=== PATIENT | female | born 1960 | race Hispanic/Latino ===

== ENCOUNTER 2016-11-23 09:37 | Outpatient (CLI) | payer MEDICAID ==
[2016-11-23 10:36] LABS: Blood Urea Nitrogen 12 mg/dL (7-17)
[2016-11-23] MEDS ORDERED: NACL ONE (11:57)
--- NOTE | 2016-11-23 14:08 | Cat Scan Report ---
CT of the abdomen and pelvis with and without IV contrast, and with oral contrast. Findings: Comparison is made to previous study performed on July 21, 2016. The liver is normal in size and configuration with no focal abnormalities. The spleen is mildly enlarged and unchanged, with no focal abnormalities. No definite evidence of varices is seen. A prominent gallstone is noted. The wall of the gallbladder does not appear thickened. The kidneys are normal in size and configuration with no evidence of mass or hydronephrosis. No pelvic masses or abnormal fluid collections are seen. No mesenteric inflammatory changes are seen. There is no free air. Impression: Cholelithiasis. Mild splenomegaly.
== END 2016-11-23 09:38 | disposition home or self-care (01) ==
LOC: CT 09:37
PROVIDERS: ATTEND Internal Medicine Gastroenterology
DX: K74.60 Unspecified cirrhosis of liver (principal); K80.20 Calculus of gallbladder without cholecystitis without obstruction; R16.1 Splenomegaly, not elsewhere classified; R77.2 Abnormality of alphafetoprotein; B19.20 Unspecified viral hepatitis C without hepatic coma
CPT/HCPCS: 36415; 74178; 82565; 84520; Q9967

== ENCOUNTER 2017-11-27 03:07 | Emergency (ER) | payer MEDICAID ==
[2017-11-27 05:15] LABS: Alanine Aminotransferase 79 units/L (7-56); Albumin 3.9 g/dL (3.9-5); BUN/Creatinine Ratio 17; Blood Urea Nitrogen 10 mg/dL (7-17); Calcium 9.1 mg/dL (8.4-10.2); Hemolysis Index 1; Lipase 28 units/L (13-60)
[2017-11-27 05:17] LABS: Basophils % (Auto) 0.3 % (0.0-1.8); Eosinophils % (Auto) 0.4 % (0.0-4.3); Hematocrit 45.2 % (30.3-42.9); Hemoglobin 14.9 gm/dl (10.1-14.3); Lymphocytes # (Auto) 0.6 K/mm3 (1.2-5.4); Lymphocytes % (Auto) 9.6 % (13.4-35.0); Mean Corpuscular HGB Conc 33 % (30-34); Mean Corpuscular Hemoglobin 30 pg (28-32); Mean Corpuscular Volume 90 fl (79-97); Monocytes # (Auto) 0.9 K/mm3 (0.0-0.8); Monocytes % (Auto) 13.9 % (0.0-7.3); Platelet Count 153 K/mm3 (140-440); Red Cell Distribution Width 16.2 % (13.2-15.2)
--- NOTE | 2017-11-27 10:13 | Emergency Department Report ---
ED Abdominal Pain HPI - General Chief Complaint: Abdominal Pain Stated Complaint: ABD/BACK PAIN Time Seen by Provider: 11/27/17 10:12 Source: patient Mode of arrival: Stretcher Limitations: No Limitations - History of Present Illness Initial Comments: PT IS A 57 YO FEMALE WHO PRESENTS WITH PELVIC PAIN , MALODOROUS DISCHARGE, MALODOROUS URINE, URINARY URGENCY, AND URINARY FREQUENCY. PT STATES SHE HAD SEX BUT THE CONDOM BROKE 2 DAYS AGO. PT STATED SHE HAS ONE SEX PARTNER AND HAS HAD PID IN THE PAST. PT STATES SHE SELF CATHERIZES AT HOME FOR ?URINARY RETENTION. PT STATES SHE RAN OUT OF CATHETERS AND HAS BEEN USING THE SAME ONE. PT STATE SHE HAS LOW BACK PAIN. PT DENIED HISTORY OF OVARIAN CYSTS OR FIBROIDS. PT DENIED ANY DIARRHEA. PT STATES SHE HAS A HISTORY OF LIVER CANCER BUT NOT ON TRANSPLANT LIST BUT HAS A CHEMO WIRE TO HER LIVER AND STATES SHE HAS CYST ON ONE OF HER HEPATIC ARTERIES WHICH MAKES HER NOT A CANDIDATE FOR TRANSPLANT. MD Complaint: abdominal pain (LOWER ABD PAIN), other (PELVIC PAIN) -: days(s) (2) Location: suprapubic (BILATERAL LOWER QUADRANTS) - Related Data Home Medications Medication Instructions Recorded Confirmed Last Taken Morphine [Morphine TAB] 30 mg PO BID 01/30/16 01/30/16 3 Days Ago ~01/27/16 Previous Rx's Medication Instructions Recorded Last Taken Type Levofloxacin [Levaquin TAB] 500 mg PO QDAY #7 tablet 02/01/16 Unknown Rx Nitrofurantoin [place]/M-Cryst 100 mg PO Q12HR #14 capsule 04/07/16 Unknown Rx [Macrobid CAP] HYDROcodone/APAP 10-325 [Donna 1 each PO Q6HR PRN #20 tablet 07/21/16 Unknown Rx 10-325 mg TAB] Ondansetron [Zofran Odt] 4 mg PO Q8HR PRN #20 tab.rapdis 07/21/16 Unknown Rx Polyethylene Glycol 3350 [Miralax 17 gm PO QDAY PRN #30 packet 07/21/16 Unknown Rx 3350] Sulfamethoxazole/Trimethoprim 1 each PO BID #6 tablet 11/27/17 Unknown Rx [Bactrim DS TAB] metroNIDAZOLE [Flagyl] 500 mg PO Q12HR #14 tab 11/27/17 Unknown Rx Allergies Allergy/AdvReac Type Severity Reaction Status Date / Time No Known Allergies Allergy Verified 12/14/15 20:33 ED Review of Systems ROS: Stated complaint: ABD/BACK PAIN Other details as noted in HPI Constitutional: denies: diaphoresis ENT: denies: throat pain Respiratory: denies: shortness of breath Cardiovascular: denies: chest pain Gastrointestinal: abdominal pain Genitourinary: urgency, dysuria. denies: hematuria, discharge (MALODOROUS) Skin: denies: rash Neurological: denies: paresthesias ED Past Medical Hx - Past Medical History Hx Congestive Heart Failure: No Hx Diabetes: No Hx Liver Disease: Yes (CIRRHOSIS hepatitis C) Hx Headaches / Migraines: Yes Hx Asthma: No Hx COPD: No Additional medical history: "2 SPOTS ON LUNG" - Surgical History Additional Surgical History: port to rt chest - Social History Smoking Status: Current Every Day Smoker Substance Use Type: None - Medications Home Medications: Home Medications Medication Instructions Recorded Confirmed Last Taken Type Morphine [Morphine TAB] 30 mg PO BID 01/30/16 01/30/16 3 Days Ago History ~01/27/16 Levofloxacin [Levaquin TAB] 500 mg PO QDAY #7 tablet 02/01/16 Unknown Rx Nitrofurantoin [place]/M-Cryst 100 mg PO Q12HR #14 capsule 04/07/16 Unknown Rx [Macrobid CAP] HYDROcodone/APAP 10-325 [Donna 1 each PO Q6HR PRN #20 tablet 07/21/16 Unknown Rx 10-325 mg TAB] Ondansetron [Zofran Odt] 4 mg PO Q8HR PRN #20 tab.rapdis 07/21/16 Unknown Rx Polyethylene Glycol 3350 [Miralax 17 gm PO QDAY PRN #30 packet 07/21/16 Unknown Rx 3350] Sulfamethoxazole/Trimethoprim 1 each PO BID #6 tablet 11/27/17 Unknown Rx [Bactrim DS TAB] metroNIDAZOLE [Flagyl] 500 mg PO Q12HR #14 tab 11/27/17 Unknown Rx ED Physical Exam - General Limitations: No Limitations General appearance: alert - Head Head exam: Present: atraumatic, normocephalic - Eye Eye exam: Present: normal appearance, PERRL, EOMI - ENT ENT exam: Present: normal exam, normal orophraynx, mucous membranes moist, other (POOR DENTITION) - Neck Neck exam: Present: normal inspection - Respiratory Respiratory exam: Present: normal lung sounds bilaterally. Absent: respiratory distress, wheezes, rales, rhonchi - Cardiovascular Cardiovascular Exam: Present: regular rate, normal rhythm, normal heart sounds - GI/Abdominal GI/Abdominal exam: Present: soft, tenderness (BILATERAL LOWER QUADS AND SUPRPUBIC), normal bowel sounds. Absent: distended - External exam: Absent: lesions, bleeding Speculum exam: Present: vaginal discharge, cervical discharge Bi-manual exam: Present: cervical motion tendernes, adnexal tenderness. Absent : normal bi-manual exam, adnexal mass - Extremities Exam Extremities exam: Present: normal inspection, full ROM - Back Exam Back exam: Present: normal inspection - Neurological Exam Neurological exam: Present: alert, oriented X3, CN II-XII intact, normal gait - Psychiatric Psychiatric exam: Absent: suicidal ideation - Skin Skin exam: Present: warm, dry, intact ED Course Vital Signs 11/27/17 11/27/17 11/27/17 03:11 04:15 10:28 Temperature 98.1 F 98.1 F 98.6 F Pulse Rate 104 H 102 H Respiratory 18 18 Rate Blood Pressure 108/70 108/70 Blood Pressure [Right] O2 Sat by Pulse 95 96 Oximetry 11/27/17 11/27/17 11/27/17 13:03 13:14 14:16 Temperature Pulse Rate Respiratory 18 Rate Blood Pressure 110/76 Blood Pressure 103/76 [Right] O2 Sat by Pulse Oximetry ED Medical Decision Making - Lab Data Result diagrams: 11/27/17 04:54 11/27/17 04:54 Critical care attestation.: If time is entered above; I have spent that time in minutes in the direct care of this critically ill patient, excluding procedure time. ED Disposition Clinical Impression: UTI (urinary tract infection), Trichomonas vaginalis infection, BV (bacterial vaginosis), Pelvic inflammatory disease (PID) Disposition: - TO HOME OR SELFCARE Is pt being admited?: No Does the pt Need Aspirin: No Condition: Stable Instructions: Abdominal Pain (ED), Urinary Tract Infection in Women (ED), Pelvic Inflammatory Disease (ED), Trichomoniasis (ED), Bacterial Vaginosis (ED) Additional Instructions: return sooner if worse or if further concerns have your partner treated for Trichomonas to prevent reinfection no sex for a week until after you have been completely treated use condoms for ALL sexual encounters Prescriptions: metroNIDAZOLE [Flagyl] 500 mg PO Q12HR #14 tab Sulfamethoxazole/Trimethoprim [Bactrim DS TAB] 1 each PO BID #6 tablet Referrals: DEZ GIMENEZ MD [Primary Care Provider] - 3-5 Days Forms: STI Treatment and Prevention Time of Disposition: 15:47
[2017-11-27] MEDS ORDERED: TORADOL IM ONE (10:42)
[2017-11-27] MEDS ORDERED: ROCEPHIN IM ONE (11:04)
[2017-11-27] MEDS ORDERED: XYLOCAINE 1% MPF 5 mL INFILTRATI ONE (11:04)
[2017-11-27] MEDS ORDERED: ZITHROMAX PO ONE (11:06)
[2017-11-27 12:10] LABS: Bacteria,Urine 3+ /HPF (Negative); Bilirubin,Urine NEG (Negative); Blood,Urine SM (Negative); Color,Urine Yellow (Yellow); Mucus,Urine 3+ /HPF; Protein,Urine <15 mg/dL mg/dL (Negative); Urobilinogen,Urine < 2.0 mg/dL (<2.0)
[2017-11-27 14:16] VITALS: BP 103/76
== END 2017-11-27 16:00 | disposition home or self-care (01) ==
LOC: ED 03:07
DX: N39.0 Urinary tract infection, site not specified (principal); A59.9 Trichomoniasis, unspecified; N73.9 Female pelvic inflammatory disease, unspecified; F17.200 Nicotine dependence, unspecified, uncomplicated; G43.909 Migraine, unspecified, not intractable, without status migrainosus
CPT/HCPCS: 36415; 80053; 81001; 83690; 85025; 87210; 87591; 99284; J0696; J1885